=== PATIENT | male | born 1990 | race Caucasian/White ===

== ENCOUNTER 2016-08-10 02:00 | Inpatient (IN) | payer MEDICAID, OTHER ==
[~2016-08-10] VITALS: Ht 177.8 cm; Wt 94.1 kg
[~2016-08-10 02:00] MED LIST: Z.0.NO CURRENT MEDS
[2016-08-10] MEDS: ACETAMINOPHEN 325 MG TAB PO PRN ×2 (02:57→20:50)
[2016-08-10 02:59] VITALS: BP 125/82; PULSE 75; RESP 18; TEMP 97.3; O2SAT 100
[2016-08-10] MEDS ORDERED: BENZTROPINE MESYLATE 2 MG/2 ML VIAL IM PRN (03:00)
[2016-08-10] MEDS ORDERED: traZODone HCL 50 MG TAB PO PRN (03:00)
[2016-08-10] MEDS ORDERED: ALUMINUM/MAGNESIUM/SIMETH 30 ML CUP PO PRN (03:00)
[2016-08-10] MEDS ORDERED: MAGNESIUM HYDROXIDE SUSP 30 ML CUP PO PRN (03:00)
[2016-08-10] MEDS ORDERED: BENZTROPINE MESYLATE 1 MG TAB PO PRN (03:00)
[2016-08-10 07:17] LABS: AUTOMATED NEUTROPHIL # 4.4 TH/MM3 (1.8-7.7); BASOPHIL % 0.3 % (0.0-2.0); EOSINOPHIL % 0.6 % (0.0-4.0); HEMO FLAGS DIFF FINAL; LYMPH % 31.6 % (9.0-44.0); LYMPHOCYTE # 2.4 TH/MM3 (1.0-4.8); MEAN CELL VOLUME 88.4 FL (80.0-100.0); MEAN CORPUSCULAR HEMOGLOBIN 30.3 PG (27.0-34.0); MEAN CORPUSCULAR HGB CONC 34.2 % (32.0-36.0); MONO % 9.3 % (0.0-8.0); NEUT % 58.2 % (16.0-70.0); PLATELET COUNT 199 TH/MM3 (150-450); RED BLOOD COUNT 4.87 MIL/MM3 (4.50-5.90); RED CELL DISTRIBUTION WIDTH 13.3 % (11.6-17.2); WHITE BLOOD COUNT 7.6 TH/MM3 (4.0-11.0)
[2016-08-10 07:43] LABS: ALT (GPT) 35 U/L (12-78); ANION GAP 8 MEQ/L (5-15); AST (GOT) 8 U/L (15-37); BICARBONATE 27.7 MEQ/L (21.0-32.0); BLOOD UREA NITROGEN 11 MG/DL (7-18); CHLORIDE 104 MEQ/L (98-107); GLOMERULAR FILTRATION RATE 75 ML/MIN (>89); POTASSIUM 4.4 MEQ/L (3.5-5.1); SODIUM (NA) 140 MEQ/L (136-145)
[2016-08-10 07:45] LABS: ALKALINE PHOSPHATASE 49 U/L (45-117); HDL CHOLESTEROL 48.5 MG/DL (40.0-60.0); LDL CHOLESTEROL 77 MG/DL (0-99); TOTAL BILIRUBIN ADULT 0.8 MG/DL (0.2-1.0)
[2016-08-10] MEDS: NICOTINE 21 MG/24 HR PATCH T-DERMAL SCH (09:00)
[2016-08-10] MEDS ORDERED: FLUMAZENIL 1 MG/10 ML VIAL IV PUSH PRN (12:45)
[2016-08-10] MEDS ORDERED: LORazepam 2 MG TAB PO PRN (12:45)
[2016-08-10] MEDS ORDERED: LORazepam 1 MG TAB PO PRN (12:45)
[2016-08-10] MEDS ORDERED: LORazepam 2 MG/ML VIAL IM PRN ×4 (12:45)
--- NOTE | 2016-08-10 13:11 | MH ---
cc: KAILA PRUETT MD DATE OF ADMISSION: 08/10/2016 ADMISSION DIAGNOSES 1. Polysubstance abuse including opiates, cocaine and alcohol, F19.10. 2. Malingering suicidal ideation to obtain detoxification services. LEGAL STATUS: The patient is capacitated to sign into the hospital voluntarily and consent for medications. HISTORY OF PRESENT ILLNESS Mr. Christopher is a 26-year-old male with a reported history of substance use disorder but no other psychiatric history, who presents in transfer from [facility] in [place]. The patient presented to [facility] and reported suicidal ideation to the ED provider. He admitted to recent substance use. He was Gutierrez Acted by the ED provider. I have reviewed the documentation from [facility] which includes a psychiatric consultation by a Dr. Esquivel with [facility] diagnoses of opiate dependence, benzodiazepine abuse and adjustment disorder. Reviewing our electronic medical record, I see no prior psychiatric contact within our system. The patient seen and examined with counselor Kami. Chart reviewed. Case was discussed with nursing staff. No reported behavioral problem on the inpatient psychiatric unit. No evidence so far of any suicidality or homicidality. On my examination today, the patient admits that he has been on a crack cocaine binge for the last 7 days and has not been sleeping for the last 4 days secondary to a substance use. He came into the emergency department at the outside hospital to obtain detoxification services in order to go to a sober living, namely [facility]. He says that he had tried to go to [facility] to obtain detoxification services for 3 days in a row but was turned away each time. He says that his mother suggested that he go to the emergency department and say that he was suicidal in order to obtain detoxification services. The patient denies suicidal or homicidal ideation at this time. He denies any specific issues with mood. He does admit to some mild anxious symptoms. He denies audiovisual hallucinations, and I can elicit no delusional beliefs. The remainder of psychiatric ROS is negative. PAST PSYCHIATRIC HISTORY Includes a history of substance use disorder. He denies a history of inpatient or outpatient psychiatric treatment for non substance use disorder issues. He denies a history of suicide attempts. FAMILY HISTORY The patient reports that his mother, sister and father all struggle with substance use issues. He denies a family history of serious mental illness or suicide. CHEMICAL DEPENDENCY HISTORY The patient reports that he has been abusing crack cocaine for the last 7 days as part of a cocaine binge. He has also been drinking about a 12-pack of beer daily but denies a history of DTs or seizures. Last use of both of these substances was just shortly prior to admission, although his toxicology was positive only for the cocaine and not the alcohol. He also admits to recent use of Roxicodone about 180 mg daily, noting that his last use was 3 or 4 days ago. He denies a history of IV drug use. He denies a history of methadone or Suboxone treatment. He says his longest sober time was 2-1/2 years and he has attended drug rehabilitation three times including two 6-month programs. SOCIAL HISTORY The patient reports he has been staying with his mother but notes that he is not allowed to stay in the home if is using substances. He has an 11th grade education. He works in [employer] work. He has twin daughters, age 16 months. He denies any active legal issues but does admit a history of burglary and dealing in stolen property. He denies any history of violent crime. He denies any access to guns or firearms. PAST MEDICAL HISTORY The patient denies any medical history. MEDICATIONS The patient is on no medications currently on an outpatient basis. ALLERGIES No known allergies. REVIEW OF SYSTEMS No reported headache, vision or hearing changes, chest pain, shortness of breath, bowel or bladder issues. No other somatic complaints. No reported complaints of withdrawal symptoms besides mild anxiety. PHYSICAL EXAMINATION Physical examination was completed at the outside hospital and the patient was medically cleared. On my examination today, the patient appears to be in no acute physical distress. No abnormal motor movements noted. In particular no hand tremor, no diaphoresis, no mydriasis or other signs of GABAergic withdrawal. No signs of lacrimation or rhinorrhea or piloerection or other signs of opiate withdrawal. No other signs of withdrawal noted. LABORATORY DATA Labs and vital signs were reviewed. I note the patient's CBC is unremarkable. His CMP is remarkable only for a mildly decreased GFR of 75. His lipid panel is unremarkable. His hemoglobin A1c is presently pending. His toxicological results are as noted above from the outside hospital. MENTAL STATUS EXAM The patient is casually dressed. He is well-groomed. He is awake, alert and oriented x3. No abnormal motor movements noted. Steady gait and station. Speech is within normal limits for rate, tone and volume. Language and fund of knowledge seem adequate and appropriate for age. Mood is fair and affect is full and reactive. Thought process is linear. No loosening of associations. No evident delusions. Denies audiovisual hallucinations. Denies suicidal or homicidal ideation. Insight and judgment seem fair. ASSESSMENT/PLAN This is a 26-year-old male with psychiatric history as detailed above, who presents on a Gutierrez Act from outside hospital where he presented with suicidal ideation. On my examination today, the patient admits that he malingered suicidal ideation in order to obtain detoxification services. He does admit to recent abuse of crack cocaine as well as alcohol and somewhat more remote abuse of opiates, namely Roxicodone. The patient is desirous of drug and alcohol treatment chiefly but has had trouble accessing these services through the addiction receiving facility in the area. His ultimate goal is to enter into a sober living. Given that the patient's substance use is certainly a risk factor for self-harm even if he is not presently suicidal, I think it makes sense to focus our treatment presently on this issue. We will manage any withdrawal symptoms he may have, although he has none at present. Ultimate goal will be to transition the patient swiftly to a sober living environment, hopefully within the next day or two. Admit inpatient. Voluntary status. CIWA with Ativan protocol as needed for withdrawal. Thiamine and folate. Seizure precautions. As needed medications for the management of anxiety, EPS and insomnia. Vitals every shift. Counselor to see. Disposition planning. Estimated length of stay: 2-3 days. Kaila Pruett DC/[place] /12:33 PM /12:47 PM MARISOL
[2016-08-10 13:12] LABS: HEMOGLOBIN A1a 1.2 %; HEMOGLOBIN A1b 1.5 %; HEMOGLOBIN Ao 86.8 %; HEMOGLOBIN LA1C 1.9 %; HEMOGLOBIN P3 3.3 %
[2016-08-10 15:00] VITALS: BP 128/74; PULSE 74; RESP 20; TEMP 99; O2SAT 100
[2016-08-10 19:36] VITALS: BP 124/78; PULSE 80; RESP 18; TEMP 95
[2016-08-10] MEDS: hydrOXYzine HCL 50 MG TAB PO PRN (20:50)
[2016-08-11 06:05] VITALS: BP 103/53; PULSE 72; RESP 18; TEMP 97.7
[2016-08-11] MEDS: THIAMINE HCL 100 MG TAB PO SCH (08:03)
[2016-08-11] MEDS: FOLIC ACID 1 MG TAB PO SCH (08:04)
[2016-08-11] MEDS: NICOTINE 21 MG/24 HR PATCH T-DERMAL SCH ×2 (08:04→08:08)
[2016-08-11] MEDS ORDERED: REMOVE OLD NICOTINE PATCH T-DERMAL SCH (09:00)
--- NOTE | 2016-08-11 09:47 | HHI.PYPN ---
Subjective Remarks Patient seen and examined with counselor Kami and nursing staff. Chart reviewed. Case discussed with nursing staff. No behaviors to report. On my examination today, patient reports that he has spoken with the in store representative from the sober living he wants to get into and will have a spot tomorrow. I have asked the counselor to confirm this. Denies SI or HI. Denies symptoms of withdrawal. No other issues noted. Review of Systems Other No physical complaints today. Objective Alert: Yes [place]: Person, Place, Date, Situation Mood: Calm Affect: Other (full and reactive) Memory Intact: Comment (intact) Hallucinations: Other (denies) Delusions: No Delusion Type: Other (no delusions) Suicidal: Ideation (denies SI) Homicidal: Ideation (denies HI) Insight/Judgement Fair Remarks No abnormal motor movements noted. No signs of withdrawal noted besides some mild rhinorrhea. Labs Labs reviewed. No new labs. Vitals/IOs Vital Signs Date Time Temp Pulse Resp B/P Pulse Ox O2 Delivery O2 Flow Rate FiO2 08/11/16 06:05 97.7 72 18 103/53 08/10/16 15:00 100 Assessment & Plan Problem List: (1) Polysubstance abuse ICD Code: F19.10 Assessment & Plan Continue CIWA for withdrawal. Continue other medications and care as ordered. Justification for Cont. Inpt. Risk for decompensation Discharge Planning Sober living, possibly tomorrow Request HC Surrog/Guard Advoc?: No Trace Pruett MD Aug 11, 2016 09:47
[2016-08-11] MEDS: hydrOXYzine HCL 50 MG TAB PO PRN ×2 (17:25→20:47)
[2016-08-11 20:27] VITALS: BP 124/65; PULSE 93; RESP 18; TEMP 98.5; O2SAT 98
[2016-08-12 06:11] VITALS: BP 128/58; PULSE 84; RESP 18; TEMP 97.9; O2SAT 99
[2016-08-12] MEDS: THIAMINE HCL 100 MG TAB PO SCH (09:00)
[2016-08-12] MEDS: FOLIC ACID 1 MG TAB PO SCH (09:00)
--- NOTE | 2016-08-12 17:13 | HHI.PYPN ---
Subjective Remarks Patient seen and examined with nursing staff. Chart reviewed. Case discussed with nursing staff who reports patient has been no behavioral problem. He reportedly did not attend a 12-step meeting on the unit. On my examination today, the patient complains of some ongoing anxiety but no SI/HI. Denies significant withdrawal symptoms. He is calling about sober living programs. Review of Systems Other No physical complaints today Objective Alert: Yes [place]: Person, Place, Date Mood: Calm Affect: Other (remains full and reactive) Memory Intact: Comment (intact) Hallucinations: Other (no AVH) Delusions: No Delusion Type: Other (no delusional material) Suicidal: Ideation (no SI) Homicidal: Ideation (no HI) Insight/Judgement Fair Remarks No abnormal motor movements noted. No signs of withdrawal noted. Thought process linear. Speech within normal limits for rate, tone and volume. Labs Labs reviewed. No new labs. Vitals/IOs Vital Signs Date Time Temp Pulse Resp B/P Pulse Ox O2 Delivery O2 Flow Rate FiO2 08/12/16 06:11 97.9 84 18 128/58 99 Assessment & Plan Problem List: (1) Polysubstance abuse ICD Code: F19.10 Assessment & Plan Continue current psychotropics as ordered. Continue other medications and care as ordered. Justification for Cont. Inpt. Risk for decompensation. Discharge Planning Sober living once a bed is available. Request HC Surrog/Guard Advoc?: No Trace Pruett MD Aug 12, 2016 17:13
[2016-08-12 19:26] VITALS: BP 122/72; PULSE 71; RESP 18; O2SAT 98
[2016-08-13 05:38] VITALS: BP 99/54; PULSE 67; RESP 16; TEMP 97.4; O2SAT 98
[2016-08-13] MEDS: FOLIC ACID 1 MG TAB PO SCH (08:55)
[2016-08-13] MEDS: THIAMINE HCL 100 MG TAB PO SCH (08:55)
--- NOTE | 2016-08-13 09:59 | HHI.PYPN ---
Subjective Remarks Patient seen and examined. Chart reviewed. Case discussed with nursing staff who reports patient has been a behavioral problem. On my examination today, patient reports anxiety is lessening. He denies withdrawal symptoms. He denies any SI, HI or AVH. No side effects from medications. Still hopeful to enter into sober living facility tomorrow. Review of Systems ROS Limitations: Poor Historian Other No physical complaints today Objective Alert: Yes [place]: Person, Place, Date Mood: Calm Affect: Euthymic Memory Intact: Comment (intact) Hallucinations: Other (denies AVH) Delusions: No Delusion Type: Other (no evident delusions) Suicidal: Ideation (denies SI) Homicidal: Ideation (denies HI) Insight/Judgement Fair Remarks Thought process linear. Steady gait and station. Labs Labs reviewed. No new labs. Vitals/IOs Vital Signs Date Time Temp Pulse Resp B/P Pulse Ox O2 Delivery O2 Flow Rate FiO2 08/13/16 05:38 97.4 67 16 99/54 98 Assessment & Plan Problem List: (1) Polysubstance abuse ICD Code: F19.10 Assessment & Plan Continue current medications as ordered. Continue other care as ordered. Justification for Cont. Inpt. Discharge planning Discharge Planning Monitor overnight. Anticipate discharge tomorrow. Request HC Surrog/Guard Advoc?: No Trace Pruett MD Aug 13, 2016 09:59
[2016-08-13 19:40] VITALS: BP 97/51; PULSE 71; RESP 18; TEMP 98.1; O2SAT 95
[2016-08-14 06:12] VITALS: BP 92/55; PULSE 69; RESP 16; TEMP 97.6; O2SAT 98
[2016-08-14] MEDS: FOLIC ACID 1 MG TAB PO SCH (08:32)
[2016-08-14] MEDS: THIAMINE HCL 100 MG TAB PO SCH (08:33)
[2016-08-14] MEDS ORDERED: ZOLO50TA PO (10:36)
--- NOTE | 2016-08-14 10:37 | HHI.DS ---
Psychiatry Discharge Summary Inpatient Psychiatric care?: Yes Advance Directive: No Reason Not Provided: DENIES Mental Health AdvanceDirective: No Health Care Proxy: No Admission Admission Date Aug 10, 2016 at 02:00 Admission Diagnosis: (1) Polysubstance abuse ICD Code: F19.10 Malingering psychiatric symptoms for detoxification services Brief History Mr. Christopher is a 26-year-old male with a reported history of substance use disorder but no other psychiatric history, who presents in transfer from [facility] in [place]. The patient presented to [facility] and reported suicidal ideation to the ED provider. He admitted to recent substance use. He was Gutierrez Acted by the ED provider. I have reviewed the documentation from [facility] which includes a psychiatric consultation by a Dr. Esquivel with [facility] diagnoses of opiate dependence, benzodiazepine abuse and adjustment disorder. Reviewing our electronic medical record, I see no prior psychiatric contact within our system. The patient seen and examined with counselor Kami. Chart reviewed. Case was discussed with nursing staff. No reported behavioral problem on the inpatient psychiatric unit. No evidence so far of any suicidality or homicidality. On my examination today, the patient admits that he has been on a crack cocaine binge for the last 7 days and has not been sleeping for the last 4 days secondary to a substance use. He came into the emergency department at the outside hospital to obtain detoxification services in order to go to a sober living, namely [facility]. He says that he had tried to go to [facility] to obtain detoxification services for 3 days in a row but was turned away each time. He says that his mother suggested that he go to the emergency department and say that he was suicidal in order to obtain detoxification services. The patient denies suicidal or homicidal ideation at this time. He denies any specific issues with mood. He does admit to some mild anxious symptoms. He denies audiovisual hallucinations, and I can elicit no delusional beliefs. The remainder of psychiatric ROS is negative. Tobacco Use In Past 30 Days: No Tobacco Past 30 Days Alcohol Use: Never Hospital Course Patient was admitted to a locked, inpatient psychiatric unit. Appropriate precautions were in place throughout patient's hospital stay. Patient was seen and examined daily on the unit by psychiatry and also visited by counselor. Patient was placed on medications for the management of withdrawal, although he had minimal evidence of any withdrawal phenomena. There was no evidence of any suicidality or homicidality on the inpatient unit. Patient remained in good behavioral control and was medication compliant. On the day of discharge: Case discussed with nursing staff. No behavioral issues to note. On my examination today, the patient requests discharge from the inpatient psychiatric unit noting that he has gotten a bed in a sober living facility. He denies any SI or HI. He has no AVH, nor can I elicit any delusional beliefs. He denies any symptoms of withdrawal. He has no other physical complaints. He does complain of some mild ongoing generalized anxiety and has reconsidered my offer to start an SSRI because he feels his anxiety may be contributing to his substance use. I discussed the risks and benefits of a trial of Zoloft with him, and he agrees to give this medication a try. Weighing the acute, chronic, and protective factors and based on the available evidence, I singing telegram performer to a reasonable degree of medical certainty that the patient is at low imminent risk of harm to self or others from a mental illness as defined under the Gutierrez act and his level of function is adequate for outpatient care. The patient has maximized benefit from this inpatient psychiatric hospital stay and will be discharged today to sober living with psychiatric follow-up as arranged by counselor. Patient is also to follow-up with primary care. I counseled the patient regarding warning signs for need to return to the psychiatric emergency room as part of the general safety plan. Results Blood Pressure 132/77 Item Value Date Time Patient Temperature 97.6 degrees F L 08/14/16 0612 Temperature Source Oral 08/14/16 0612 Pulse Rate 91 bpm H 08/14/16 1055 Respiratory Rate 16 bpm 08/14/16 0612 Blood Pressure Assessment 132/77 (95) 08/14/16 1055 Source Automatic Cuff Bedside Pulse Oximetry 98 % 08/14/16 0612 Laboratory Results Test 08/10/16 07:00 Hemoglobin A1c 5.1 % (4.3-6.0) Triglycerides Level 87 MG/DL (42-150) Cholesterol Level 143 MG/DL (120-200) LDL Cholesterol 77 MG/DL (0-99) HDL Cholesterol 48.5 MG/DL (40.0-60.0) Summary of Procedures None done Imaging None done Pending results at discharge: No Medications # of Antipsychotic meds at D/C: 0 Approp Antipsych med options 1 - Minimum of three failed multiple trials of monotherapy. 2 - Documented plan to taper to monotherapy due to previous use of multiple meds OR cross-taper in progress at D/C. 3 - Documentation of augmentation of Clozapine. 4 - Justification other than those listed in allowable values 1-3, document here : Discharge Discharge Date: Aug 14, 2016 Discharge Diagnosis: (1) Polysubstance abuse Diagnosis: Principal ICD Code: F19.10 (2) Anxiety disorder Diagnosis: Secondary ICD Code: F41.9 GAF on discharge is 60. Mental Status Exam at Disch Patient is casually dressed. He is well groomed. He is awake and alert and oriented 3. No evidence of delirium. No signs of withdrawal noted. No motoric abnormalities noted. Steady gait and station. Speech is within normal limits for rate, tone and volume. Language and fund of knowledge seem adequate and appropriate for age. Mood is fair and affect is euthymic, full and reactive. Thought process linear. No loosening of associations. No evident delusions. No audiovisual hallucinations. Denies suicidal or homicidal ideation. Insight and judgment are fair. Pt Condition on Discharge: Stable Discharge Disposition: Discharge Home Discharge Instructions Diet Instructions: As Tolerated, No Restrictions Activities you can perform: Weight Bearing as Noemi Scheduled Appointment: Manpreet Donis Act Appointment Date: Aug 16, 2016 Appointment Time: 7:45am New Orders: BASIC METABOLIC PROF - 1 Week New Medications: Sertraline (Zoloft) 50 Mg Tab 50 MG PO DAILY Mental Health Days 15 Ref 1 TAB Discontinued Medications: Miscellaneous (No Current Meds) Misc Discharge Time <= 30 minutes Discharge/Advance Care Plan Health Problems: (1) Polysubstance abuse Goals to promote your health * To prevent worsening of your condition and complications * To maintain your health at the optimal level Directions to meet your goals Take your medications as prescribed Follow your dietary instruction Follow activity as directed Keep your appointments as scheduled Take your immunizations and boosters as scheduled If your symptoms worsen call your PCP, if no PCP go to Urgent Care Center or Emergency Room For 05/03 questions related to your inpatient stay or results of tests pending at discharge, please contact Dr. Trace Pruett at Smoking is Dangerous to Your Health. Avoid second hand smoking Problem Qualifiers (1) Anxiety disorder: Qualified Code: F41.9 - Anxiety disorder, unspecified type Trace Pruett MD Aug 14, 2016 10:36
[2016-08-14 10:55] VITALS: BP 132/77; PULSE 91
== END 2016-08-14 12:15 | disposition home or self-care (01) | DRG 897 ==
LOC: H270 02:00
PROVIDERS: ADMIT Psychiatry & Neurology Psychiatry; ATTEND Psychiatry & Neurology Psychiatry
DX: F19.10 Other psychoactive substance abuse, uncomplicated (principal); F11.20 Opioid dependence, uncomplicated; F14.10 Cocaine abuse, uncomplicated; Z76.5 Malingerer [conscious simulation]; F43.20 Adjustment disorder, unspecified; F41.1 Generalized anxiety disorder
CPT/HCPCS: 80053; 80061; 83036; 85025

== ENCOUNTER 2016-10-01 03:13 | Emergency (ER) | payer MEDICAID, OTHER ==
[~2016-10-01] VITALS: Ht 180.3 cm; Wt 80.0 kg
[~2016-10-01 03:13] MED LIST changes: -Z.0.NO CURRENT MEDS; +ZOLO50TA PO
[2016-10-01 03:15] VITALS: BP 139/85; PULSE 95; RESP 18; TEMP 98; O2SAT 96
[2016-10-01 03:39] LABS: BASOPHIL % 0.2 % (0.0-2.0); EOSINOPHIL % 0.2 % (0.0-4.0); HEMATOCRIT 39.6 % (39.0-51.0); HEMO FLAGS DIFF FINAL; LYMPHOCYTE # 1.9 TH/MM3 (1.0-4.8); MEAN CELL VOLUME 87.5 FL (80.0-100.0); MEAN CORPUSCULAR HEMOGLOBIN 30.7 PG (27.0-34.0); MEAN CORPUSCULAR HGB CONC 35.1 % (32.0-36.0); MONO % 7.9 % (0.0-8.0); NEUT % 66.7 % (16.0-70.0); PLATELET COUNT 205 TH/MM3 (150-450); RED BLOOD COUNT 4.53 MIL/MM3 (4.50-5.90); RED CELL DISTRIBUTION WIDTH 13.1 % (11.6-17.2); WHITE BLOOD COUNT 7.5 TH/MM3 (4.0-11.0)
--- NOTE | 2016-10-01 03:39 | PD ---
HPI Chief Complaint: Psychiatric Symptoms Time Seen by Provider: 03:35 Travel History International Travel<30 days: No Contact w/Intl Traveler<30days: No Traveled to known affect area: No History of Present Illness HPI Patient comes in requesting a psychiatric evaluation feeling depressed. Patient is not wanting to answer questions but will occasionally shake his head yes thus limiting H&P. Patient reportedly told RN that he has been smoking a lot of crack lately. He reports he smoked crack in the past but not this amount and he feels depressed. PFSH Past Medical History Cancer: No Cardiovascular Problems: No Diabetes: No Endocrine: No Glaucoma: No Genitourinary: No Headaches: No Hepatitis: No Hiatal Hernia: No Immune Disorder: No Musculoskeletal: No Neurologic: No Psychiatric: No Reproductive: No Respiratory: No Immunizations Current: Yes Seizures: No Thyroid Disease: No Past Surgical History Abdominal Surgery: No Cardiac Surgery: No Ear Surgery: No Endocrine Surgery: No Eye Surgery: No Genitourinary Surgery: No Gynecologic Surgery: No Oral Surgery: No Pacemaker: No Thoracic Surgery: No Social History Alcohol Use: No Tobacco Use: No Substance Use: Yes (CRACK) Allergies-Medications (Allergen,Severity, Reaction): Coded Allergies: No Known Allergies (Verified , 10/01/16) Reported Meds & Prescriptions Reported Meds & Active Scripts Active No Active Prescriptions or Reported Medications Review of Systems ROS Limitations: Uncooperative Except as stated in HPI: all other systems reviewed are Neg Physical Exam Narrative GENERAL: Well-developed, well nourished, in no acute distress, and non-ill appearing. SKIN: Warm and dry. HEAD: Atraumatic. Normocephalic. EYES: Pupils equal and round. EOMI. No scleral icterus. No injection or drainage. ENT: No nasal bleeding or discharge. Mucous membranes pink and moist. NECK: Trachea midline. Supple. No nuclear rigidity. CARDIOVASCULAR: Regular rate and rhythm. No murmur appreciated. RESPIRATORY: No accessory muscle use. No respiratory distress. Clear to auscultation. Breath sounds equal bilaterally. MUSCULOSKELETAL: No obvious deformities. No clubbing. No cyanosis. No edema. Full range of motion. NEUROLOGICAL: Awake and alert. No obvious cranial nerve deficits. Motor grossly within normal limits. Data Data Last Documented VS Vital Signs Date Time Temp Pulse Resp B/P Pulse Ox O2 Delivery O2 Flow Rate FiO2 10/01/16 03:15 98.0 95 18 139/85 96 Orders Complete Blood Count With Diff (10/01/16 03:22) Comprehensive Metabolic Panel (10/01/16 03:22) Psych Screen (10/01/16 03:22) Drug Screen, Random Urine (10/01/16 03:22) Alcohol (Ethanol) (10/01/16 03:22) Salicylates (Aspirin) (10/01/16 03:22) Tylenol (Acetaminophen) (10/01/16 03:22) Labs Laboratory Tests Test 10/01/16 03:30 White Blood Count 7.5 TH/MM3 Red Blood Count 4.53 MIL/MM3 Hemoglobin 13.9 GM/DL Hematocrit 39.6 % Mean Corpuscular Volume 87.5 FL Mean Corpuscular Hemoglobin 30.7 PG Mean Corpuscular Hemoglobin 35.1 % Concent Red Cell Distribution Width 13.1 % Platelet Count 205 TH/MM3 Mean Platelet Volume 8.3 FL Neutrophils (%) (Auto) 66.7 % Lymphocytes (%) (Auto) 25.0 % Monocytes (%) (Auto) 7.9 % Eosinophils (%) (Auto) 0.2 % Basophils (%) (Auto) 0.2 % Neutrophils # (Auto) 5.0 TH/MM3 Lymphocytes # (Auto) 1.9 TH/MM3 Monocytes # (Auto) 0.6 TH/MM3 Eosinophils # (Auto) 0.0 TH/MM3 Basophils # (Auto) 0.0 TH/MM3 CBC Comment DIFF FINAL Differential Comment Sodium Level 139 MEQ/L Potassium Level 3.5 MEQ/L Chloride Level 105 MEQ/L Carbon Dioxide Level 22.9 MEQ/L Anion Gap 11 MEQ/L Blood Urea Nitrogen 9 MG/DL Creatinine 0.96 MG/DL Estimat Glomerular Filtration 95 ML/MIN Rate Random Glucose 99 MG/DL Calcium Level 8.4 MG/DL Total Bilirubin 0.7 MG/DL Aspartate Amino Transf 18 U/L (AST/SGOT) Alanine Aminotransferase 38 U/L (ALT/SGPT) Alkaline Phosphatase 48 U/L Total Protein 7.8 GM/DL Albumin 4.3 GM/DL Salicylates Level LESS THAN 1.7 MG/DL Acetaminophen Level LESS THAN 2.0 MCG/ML Ethyl Alcohol Level 39 MG/DL MDM Medical Decision Making Medical Screen Exam Complete: Yes Emergency Medical Condition: Yes Differential Diagnosis Homicidal, suicidal, substance abuse, substance-induced mood disorder, other Narrative Course Patient was seen and examined. Labs were obtained and reviewed with the exception of urine drug screen. Patient medically cleared for further treatment and evaluation by psych. Final disposition per psych. Diagnosis Primary Impression: Medical clearance for psychiatric admission Scripts No Active Prescriptions or Reported Meds Condition: Ascencion Stoner Oct 01, 2016 03:39
[2016-10-01 04:00] LABS: ALT (GPT) 38 U/L (12-78); ANION GAP 11 MEQ/L (5-15); AST (GOT) 18 U/L (15-37); BICARBONATE 22.9 MEQ/L (21.0-32.0); BLOOD UREA NITROGEN 9 MG/DL (7-18); CHLORIDE 105 MEQ/L (98-107); GLOMERULAR FILTRATION RATE 95 ML/MIN (>89); POTASSIUM 3.5 MEQ/L (3.5-5.1); SODIUM (NA) 139 MEQ/L (136-145)
[2016-10-01 04:03] LABS: ACETAMINOPHEN LESS THAN 2.0 MCG/ML (10.0-30.0); ALKALINE PHOSPHATASE 48 U/L (45-117); TOTAL BILIRUBIN ADULT 0.7 MG/DL (0.2-1.0)
[2016-10-01 04:50] LABS: AMPHETAMINE, URINE NEG (NEG); BARBITURATES, URINE NEG (NEG); COCAINE, URINE POS (NEG)
[2016-10-01 06:26] VITALS: BP 123/61; PULSE 73; RESP 17; O2SAT 100
[2016-10-01 10:00] VITALS: BP 121/68; PULSE 95; RESP 18
[2016-10-01 14:46] VITALS: BP 121/78; PULSE 66; RESP 16; O2SAT 100
== END 2016-10-01 15:54 ==
LOC: NEPA 03:13 → NEPJ 15:54
DX: Z02.89 Encounter for other administrative examinations (principal); F14.90 Cocaine use, unspecified, uncomplicated
CPT/HCPCS: 80053; 80307; 80320; 80329; 85025; 99284; G0480